=== PATIENT | female | born 1985 | race African-American/Black ===

== ENCOUNTER 2019-06-09 10:12 | Emergency (ER) | payer BC, MEDICAID ==
[~2019-06-09] VITALS: Ht 160 cm; Wt 89.0 kg
[2019-06-09] MEDS ORDERED: FAMOTIDINE 20MG TABLET PO ONE (12:15)
[2019-06-09] MEDS ORDERED: ONDANSETRON 4MG ODT PO ONE (12:15)
[2019-06-09] MEDS ORDERED: MAGNESIUM/ALUMINUM HYDROXIDE/SIMETHICONE 30ML UDC PO ONE (12:15)
[2019-06-09] MEDS ORDERED: ACETAMINOPHEN 325MG TABLET PO ONE (12:15)
[2019-06-09 12:56] LABS: BASOPHILS % 0.3 % (0.0-2.0); EOSINOPHILS % 0.4 % (0.0-5.0); HEMOGLOBIN. 13.7 g/dL (12.0-16.0); LYMPHOCYTES % 8.7 % (20.0-50.0); MEAN CORPUSCULAR HEMOGLOBIN 28.1 pg (28.0-32.0); MEAN CORPUSCULAR VOLUME 81.8 fL (81.0-99.0); MEAN PLATELET VOLUME 9.3 fl (7.4-10.4); MONOCYTES % 6.7 % (2.0-8.0); NEUTROPHILS % 83.9 % (40.0-76.0); PLATELET 190 x1000/uL (130-400); RED BLOOD CELL COUNT 4.88 mill/uL (4.2-5.4); RED CELL DISTRIBUTION WIDTH 14.9 % (11.6-14.6)
[2019-06-09 12:57] LABS: CHLORIDE 108 mEq/L (98-107)
[2019-06-09 15:34] VITALS: BP 128/78
== END 2019-06-09 15:48 | disposition home or self-care (01) ==
LOC: ER 10:12
DX: R07.89 Other chest pain (principal); I51.7 Cardiomegaly; J98.4 Other disorders of lung
CPT/HCPCS: 36415; 71045; 80053; 81025; 84443; 84484; 85025; 93005; 99284; Q0162; Z7610